=== PATIENT | female | born 1965 | race Caucasian/White ===

== ENCOUNTER → 2017-12-07 | Outpatient (CLI) | payer OTHER ==
[~2017-12-07] MED LIST: AZEL137S NS; CALC-635 PO; CETI10CA8 PO; CHOL100058 PO; DICY20TA70 PO; EPIN0.3P3 IM; FEXO-67 PO; FLU45SYR17 IM; FLU45SYR25 IM ONLY; FLU60SYR30 IM ONLY; GABA-549 PO; HYOS0.1224 SL; LEVO750T44 PO; MELO-207 PO; MOMR; MONT10TA PO; NIAC500T12 PO; NITR-105 PO; OMEP-125 PO; TRIA15OI20 TP; ZOLCR625PT PO
--- NOTE | 2017-12-08 08:37 | RADIOLOGY IMAGING REPORT ---
[place] [facility] [place] NAME: LUCA NOBLE : [id number] MR: [id number] V: [id number] EXAM DATE: ORDERING PHYSICIAN: RANULFO LEÓN TECHNOLOGIST: Marcela Barker PROCEDURE:BILATERAL DIGITAL SCREENING MAMMOGRAM WITH CAD ASSISTED INTERPRETATION & 3D TOMOSYNTHESIS COMPARISON:Prior mammograms 11/05/16, 09/25/14. INDICATIONS:screening FINDINGS: Moderately dense fibroglandular tissue is seen throughout the breasts. The parenchymal pattern has remained stable allowing for difference in mammographic technique & patient positioning. There is no evidence of malignant appearing mass, malignant appearing calcifications or other secondary sign of malignancy in either breast. DIAGNOSTIC CATEGORY 1--NEGATIVE. RECOMMENDATIONS: ROUTINE MAMMOGRAM AND CLINICAL EVALUATION. IMPRESSION: BIRADS 1: Negative. No significant abnormality is seen. Dictated by: Amanda Romero M.D. on 12/07/2017 at 14:30 Transcribed by: KATHRINE on 12/07/2017 at 14:40 Approved by: Amanda Romero M.D. on 12/08/2017 at 8:36 [facility]
== END ==
LOC: MAMO 00:54
PROVIDERS: ATTEND Internal Medicine
DX: Z12.31 Encounter for screening mammogram for malignant neoplasm of breast (principal)
CPT/HCPCS: 77063; 77067

== ENCOUNTER → 2018-10-06 | Outpatient (CLI) | payer OTHER ==
[~2018-10-06] MED LIST changes: +CYAN50TA3 PO; +DICL100G39 TOP; +FERR159T PO; +FLU60VIA41 IM; +TRAZ100T31 PO; +TRIA15CR40 TP
[2018-10-06 11:52] LABS: PLATELET COUNT, AUTOMATED 273 K/uL (150-450)
[2018-10-06 11:58] LABS: LDL CHOLESTEROL 71 mg/dl
== END ==
LOC: LAB 11:23
PROVIDERS: ATTEND Emergency Medicine
DX: M19.90 Unspecified osteoarthritis, unspecified site (principal); D75.89 Other specified diseases of blood and blood-forming organs; M79.10 Myalgia, unspecified site; Z72.9 Problem related to lifestyle, unspecified
CPT/HCPCS: 36415; 82040; 82247; 82306; 82310; 82374; 82435; 82465; 82565; 82607; 82947; 83718; 84075; 84132; 84155; 84295; 84450; 84460; 84478; 84520; 85007; 85027; 86803